=== PATIENT | female | born 1955 | race Hispanic/Latino ===

== ENCOUNTER 2021-07-28 18:45 | Emergency (ER) | payer MEDICARE ==
[~2021-07-28] VITALS: Ht 160 cm; Wt 58.1 kg
[2021-07-28] MEDS ORDERED: IBUPROFEN 400 MG TAB PO ONE (19:15)
[2021-07-28] MEDS ORDERED: SOTROVIMAB 500 MG in SODIUM CHLORIDE 0.9% 100 ML IV ONE (19:15)
[2021-07-28] MEDS ORDERED: ACETAMINOPHEN 325 MG TAB PO ONE (19:15)
[2021-07-28 20:34] VITALS: BP 132/81
== END 2021-07-28 20:36 | disposition home or self-care (01) ==
LOC: ER 20:09
DX: U07.1 COVID-19 (principal); R50.9 Fever, unspecified; R05.9 Cough, unspecified
CPT/HCPCS: 99283; J7050